=== PATIENT | female | born 1940 | race Two or more races ===

== ENCOUNTER 2020-02-03 13:55 | Emergency (ER) | payer MEDICARE, MEDICAID ==
[~2020-02-03] VITALS: Ht 160 cm; Wt 62.6 kg
--- NOTE | 2020-02-03 14:30 | NUR ---
PT WITH C/O ABD PAIN/FLANK PAIN X1 WEEK. DENIES N/V/D. DENIES URINARY SYMPTOMS
[2020-02-03 14:48] LABS: BASOPHILS # (AUTO) 0.02 x10^3/uL (0-0.1); BASOPHILS % (AUTO) 0 % (0-1); EOSINOPHILS # (AUTO) 0.01 x10^3/uL (0-0.4); EOSINOPHILS % (AUTO) 0 % (1-7); LYMPHOCYTES # (AUTO) 0.95 x10^3/uL (1-3.4); LYMPHOCYTES % (AUTO) 20 % (22-44); MD NO; MEAN CORPUSCULAR HEMOGLOBIN 31.7 pg (27.0-34.8); MEAN CORPUSCULAR HGB CONC 31.9 g/dL (32.4-35.8); MEAN PLATELET VOLUME 8.7 fL (7.4-10.4); MONOCYTES # (AUTO) 0.46 x10^3/uL (0.2-0.8); MONOCYTES % (AUTO) 10 % (2-9); NEUTROPHILS # (AUTO) 3.35 x10^3/uL (1.8-6.8); NEUTROPHILS % (AUTO) 70 % (42-75); PLATELET COUNT 220 x10^3/uL (130-400); RED BLOOD COUNT 4.83 x10^6/uL (3.82-5.3); RED CELL DISTRIBUTION WIDTH 15.5 % (9.6-15.2)
--- NOTE | 2020-02-03 14:48 | NUR ---
PT AMBULATED TO BR WITH STEADY GAIT, PT DENIES LIGHTHEADINESS OR DIZZINESS PT STATES BP NORMALLY RUNS "A LITTLE LOW" RETAKEN NOW 101/58. UA COLLECTED AND SENT TO LAB. PT TO BP, CONT PULSE OX
[2020-02-03 14:59] LABS: ANION GAP 4 mmol/L (5-15); CALCIUM 9.1 mg/dL (8.5-10.1); CHLORIDE 105 mmol/L (98-107); CREATININE 1.12 mg/dL (0.55-1.02)
[2020-02-03 15:00] LABS: ALANINE AMINOTRANSFERASE 16 U/L (12-78); ALBUMIN 3.8 g/dL (3.4-5.0)
[2020-02-03 15:02] LABS: ALKALINE PHOSPHATASE 66 U/L (45-117); BILIRUBIN,TOTAL 0.4 mg/dL (0.2-1.0); TOTAL PROTEIN 7.1 g/dL (6.4-8.2)
--- NOTE | 2020-02-03 15:14 | NUR ---
PT WITH NOW BP 77/48, ERMD UPDATED HE IS IN TO EVAL PT. PIV INITIATED, BOLUS BEGAN PER VO
[2020-02-03 15:22] LABS: MICROSCOPIC INDICATED
[2020-02-03] MEDS ORDERED: SODIUM CHLORIDE 0.9% 1,000ML IVBOLUS ONE (15:30)
[2020-02-03] MEDS ORDERED: PLEASE ENTER ALLERGIES MC SCH (15:30)
[2020-02-03] MEDS ORDERED: SODIUM CHLORIDE FLUSH 10ML SYR IVF ONE (15:30)
[2020-02-03 16:37] VITALS: BP 101/61
--- NOTE | 2020-02-03 16:37 | NUR ---
PT BACK FROM CT, VSS. NO NEEDS AT THIS TIME
== END 2020-02-03 17:51 | disposition home or self-care (01) ==
LOC: ED 15:50
DX: K59.00 Constipation, unspecified (principal); R10.11 Right upper quadrant pain; R10.13 Epigastric pain; R10.33 Periumbilical pain; I48.91 Unspecified atrial fibrillation; R00.0 Tachycardia, unspecified; E11.9 Type 2 diabetes mellitus without complications; E78.5 Hyperlipidemia, unspecified; E78.00 Pure hypercholesterolemia, unspecified; I25.2 Old myocardial infarction; F17.200 Nicotine dependence, unspecified, uncomplicated; Z90.49 Acquired absence of other specified parts of digestive tract; Z90.710 Acquired absence of both cervix and uterus; Z86.73 Personal history of transient ischemic attack (TIA), and cerebral infarction without residual deficits
CPT/HCPCS: 36415; 74176; 80053; 81001; 85025; 87086; 93005; 96360; 99285; J7030